=== PATIENT | male | born 1995 | race Caucasian/White ===

== ENCOUNTER 2021-05-08 10:25 | Emergency (ER) | payer OTHER, SELFPAY ==
[2021-05-08 10:34] VITALS: BP 153/82; PULSE 84; RESP 19; O2SAT 100; BMI 30.8
--- NOTE | 2021-05-08 10:41 | CT_ITS ---
WS: [id number] CT THORACIC SPINE HISTORY: fall 12 ft TECHNIQUE: Contiguous 2.5 mm axial images are reviewed to thoracic spine. Images are reformatted in s agittal and coronal planes. All CT scans at [facility] use at least one of these dose optimiz ation techniques: automated exposure control; mA and/or kV adjustment per patient size (includes targ eted exams where dose is matched to clinical indication); or iterative reconstruction. DLP: 2337.35 mGy.cm COMPARISON: None available. Normal posterior thoracic alignment. Disc spaces are maintained. Minimal compression deformity involving the superior endplate of T4 without retropulsion. Less than 5 % loss of height. There is a small amount of bleeding around the vertebral body. There is an additional mildly complex compression fracture involving the superior endplate of T6 frac ture which extends into the LEFT lateral vertebral body. Complex fracture lines extend transversely a nd vertically. There is concave deformity with the fracture resulting in buckling anteriorly. No retr opulsion. Small amount of paravertebral hematoma adjacent to the T6 vertebral body. No additional fractures are identified. No adjacent pulmonary contusion or pneumothorax. CT/CT thoracic spin wo con* [id number] IMPRESSION: 1. Minimal anterior compression fracture involving T6 of approximately 10%. No retropulsion but there is buckling of the anterior LEFT lateral T6 vertebral b julieta. 2. Minimal anterior wedging, less than 5%, involving the superior endplate of T4 consistent with an acute fracture.
--- NOTE | 2021-05-08 10:41 | CT_ITS ---
WS: [id number] CT CERVICAL SPINE HISTORY: fall TECHNIQUE: Contiguous 2.5 mm axial imaging performed through the entire cervical spine. Sagittal and coronal reformats also performed. All CT scans at [facility] use at least one of these dose o ptimization techniques: automated exposure control; mA and/or kV adjustment per patient size (include s targeted exams where dose is matched to clinical indication); or iterative reconstruction. DLP: 890.31 mGy.cm COMPARISON: None available. Mild straightening of the normal cervical lordosis. Posterior cervical alignment is normal. Craniocer vical junction is normal. Lateral masses are aligned and the odontoid is intact. Predental space is n ormal. Facet joints are normally aligned. No acute cervical spine fractures are identified. Small jad tral disc protrusion at C3-4. Lung apices are clear. Benign cervical area lymph nodes. No compromise of the airway. No pneumothorax at the apices. Soft tissues are normal. Lung apices are clear. CT/CT cervical spin wo con* [id number] IMPRESSION: No acute cervical spine fracture.
--- NOTE | 2021-05-08 10:41 | CT_ITS ---
WS: [id number] CT CHEST, ABDOMEN AND PELVIS WITH CONTRAST. HISTORY: fall 12 ft, landed on back TECHNIQUE: Contiguous 5 mm axial imaging performed through the chest, abdomen and pelvis with IV cont rast, oral contrast has not been provided. Coronal and sagittal reformats chest. Coronal and sagittal reformats through the abdomen and pelvis. All CT scans at [facility] use at least one of the se dose optimization techniques: automated exposure control; mA and/or kV adjustment per patient size (includes targeted exams where dose is matched to clinical indication); or iterative reconstruction. CONTRAST: Visipaque 320; 95 mL IV. DLP: 1571.35 mGy.cm COMPARISON: None available. Chest CT: There is very minimal interstitial thickening of the posterior superior RIGHT upper and RIG HT lower lobes. This is very close to the site of the T6 compression fracture. May be very minimal ar eas of pulmonary contusion or atelectasis. No laceration. No pneumonia. 3 mm nodule RIGHT lower lobe. No pneumothorax. Normal size thoracic aorta. No evidence for aortic injury. No hematoma. Normal size pulmonary artery. Heart is normal. No pericardial or pleural effusions. Small triangular soft tissue mass in the anter ior mediastinum is most consistent with normal residual thymic tissue. No rib fractures are identified. Again noted are the minimal compression deformities involving T4 and T6 which were described on the thoracic spine CT. Abdomen CT: Liver, spleen, pancreas, gallbladder, adrenals and kidneys are negative for acute injury. No free air or mesenteric hematoma. Visualized GI tract is normal. There is significant fecal retent ion in the RIGHT colon. Pelvic CT: Minimally well distended urinary bladder. There is no free fluid or blood in the pelvis. N o adenopathy. No pelvic fractures. CT/CT chest abd pel w con* IMPRESSION: 1. Very minimal soft tissue thickening in the posterior superior lower lobes b ilaterally. This is near the site of the T6 compression fracture. Could represe nt very minimal pulmonary contusion. Alternatively could be a small amount of a telectasis from dependent positioning. 2. No pneumothorax. 3. Thoracic and abdominal aortas are normal. 4. No mediastinal hematoma. 5. No abdominal or pelvic acute abnormalities.
--- NOTE | 2021-05-08 10:43 | ED_ITS ---
Documented by User: ARAM Villa 05/08/21 13:06 HPI - Fall General: Chief Complaint: Fall Stated Complaint: FALL FROM TREE STAND 12 FEET HIGH Time Seen by Provider: 05/08/21 10:34 Source: patient and family Mode of arrival: ambulatory Limitations: no limitations History of Present Illness: HPI Narrative: Patient is a 25-year-old male who presents to ED today along with his mother for complaints of a fall from a tree stand at approximately 12 feet. He states he landed directly onto his back. He is complaining of mid back pain and bilateral rib pain. Patient denies striking his head or LOC. He does not complain of lower back, hip, or lower extremity pain. He has been ambulatory since the fall without difficulty. He complains of pain with deep inhalation MD complaint: fall Onset (ago): minute(s) Fall from: from height (distance) (12 ft) Fall witnessed: no Place fall occurred: other (outdoors; tree stand) Loss of consciousness: None Symptoms prior to fall: none Context: tripped/slipped Location of injury: chest and back Associated symptoms-after fall: Reports chest pain and headache(s); Denies abdominal pain, difficulty walking, lightheadedness or neck pain Review of Systems Eyes: Denies: change in vision ENMT: Denies: odynophagia, ear or mastoid pain, ear discharge, nasal discharge or epistaxis Card: Reports: chest pain; Denies: palpitations, irregular heart rhythm, edema, swelling of feet/ankles, lightheadedness, syncope or pre-syncope Resp: Denies: dyspnea, wheezing or hemoptysis GI: Denies: abdominal pain, vomiting or hematemesis Musc: Reports: back pain; Denies: neck pain, extremity pain or joint pain Neuro: Reports: headache(s); Denies: numbness in extremities, weakness in extremities, sensory changes, lack of coordination, difficulty walking or dizziness Physical Exam Const: COMMON NORMALS: average body habitus, patient oriented x3, no limitations, healthy appearing, alert and well nourished GENERAL APPEARANCE: in distress (appears uncomfortable secondary to pain) ORIENTATION/CONSCIOUSNESS: Yes awake, Yes oriented to person, Yes oriented to place and Yes oriented to time HENMT: COMMON NORMALS: normocephalic and atraumatic HEAD & SCALP: n ormocephalic and atraumatic Neck/C-Spine: COMMON NORMALS: full ROM CERVICAL SPINE: Yes cervical ROM normal, No pain with cervical ROM, No Cervical spine tenderness, No step off deformity and No Paracervical muscle tenderness Chest: COMMONS NORMALS: normal inspection of the chest CHEST: Yes Sym metrical chest wall rise OTHER: TTP bilateral posteriolateral ribs; no crepitus or bony deformites noted Resp: COMMON NORMALS: normal respiratory effort and clear to auscultation bilaterally AUSCULTATION: clear to auscultation bilaterally Cardio: COMMON NORMALS: regular rate and regular rhythm RATE: regular rate RHYTHM: regular rhythm GI: COMMON NORMALS: Normal to inspection, nondistended, normoactive bowel sounds present, Soft to palpation, non-tender, No hepatosplenomegaly present and no masses PALPATION: Yes Soft to palpation and Yes No hepatosplenomegaly present Back/Pelvis: COMMON NORMALS: straight leg raise negative bilaterally THORACIC SPINE/UPPER BACK: Yes ROM limited (secondary to pain) and Yes thoracic spinal tenderness (mid to lower T spine) LUMBAR SPINE/LOWER BACK: Yes normal to inspection, Yes lumbar ROM normal, No lumbar spinal tenderness and No paraspinal muscle tenderness PELVIS: Yes buttocks normal SACROILIAC JOINTS: Yes SI joints normal Extremity: COMMON NORMALS: normal to inspection and full ROM GENERAL: Yes normal exam except as noted Neuro: ANNAMARIA COMA SCALE: document GCS findings [place] coma scale eye opening: Spontaneous Annamaria coma scale verbal response: Orientated Annamaria coma scale motor response: Obey commands Annamaria coma scale total score: 15 COMMON NORMALS: patient oriented x3, moves all extremities, no focal motor deficits, no sensory deficits noted and gait normal SENSORIUM/ORIENTATION: Yes alert, Yes oriented to person, Yes oriented to place and Yes oriented to time Skin: COMMON NORMALS: no rashes or lesions noted GENERAL SKIN EXAM: no rashes or lesions noted TRAUMA: no lacerations or abrasions Course Vital Signs: Vital signs: Vital Signs Temperature 98.9 F 05/08/21 12:35 Pulse Rate 66 05/08/21 12:35 Respiratory Rate 19 H 05/08/21 12:35 Blood Pressure 121/76 05/08/21 12:35 Pulse Oximetry 98 05/08/21 12:35 MDM - Fall MDM Narrative: Medical decision making narrative: Imaging obtained of CT cervical, thoracic, lumbar, chest/abdomen/pelvis showing a T6 fracture with possible associated minor pulmonary contusions. Patient's respirations are even and nonlabored. Sats are normal. Spoke with Dr. Ocampo who agreed with plan for discharge, TLSO brace, and follow-up with Dr. Ann. Strict return to ED precautions given regarding worsening or uncontrollable pain, shortness of breath, difficulty breathing, chest pain, abdominal pain, or any other concerns he may have. Lab Data: Labs: Lab Results 05/08/21 05/08/21 11:00 11:00 WBC 11.9 10^3/uL H 10 ^3/uL (4.0-10.0) RBC 5.13 10^6/uL 10^6 /uL (4.1-5.3) Hgb 15.6 g/dL g/dL (11.7-16.6) Hct 44.7 % % (42.0-52.0) MCV 87.1 fl fl (80-94) MCH 30.4 pg pg (28.0-34.0) MCHC 34.9 g/dL g/dL (30.0-36.0) RDW 12.4 % % (12.1-15.1) Plt Count 177 10^3/cmm 10^3 /cmm (130-400) MPV 10.7 fL H fL (7.4-10.4) Neut % (Auto) 66.4 % % Lymph % (Auto) 24.3 % % [place] % (Auto) 7.7 % % Eos % (Auto) 0.9 % % Baso % (Auto) 0.4 % % Neut # (Auto) 7.89 10^3/uL H 10 ^3/uL (1.8-7.7) Lymph # (Auto) 2.9 10^3/uL 10^3/ uL (0.8-4.8) [place] # (Auto) 0.9 10^3/uL 10^3/ uL (0.2-0.9) Eos # (Auto) 0.1 10^3/uL 10^3/ uL (0.0-0.8) Baso # (Auto) 0.1 10^3/uL 10^3/ uL (0.0-0.1) Nucleated RBC % (a uto) 0 % % Nucleated RBCs # 0.0 /100WBC /100W BC Sodium 140 mmol/L mmol/L (136-145) Potassium 3.9 mmol/L mmol/L (3.5-5.1) Chloride 103 mmol/L mmol/L (98-107) Carbon Dioxide 27 mmol/L mmol/L (22-29) Anion Gap 13.9 (5-19) BUN 7 mg/dL mg/dL (6-20) Creatinine 0.9 mg/dL mg/dL (0.7-1.2) GFR Calculation 103.7 mL/min mL/m in (90-130) Glucose 83 mg/dL mg/dL (65-115) Calculated Osmolal ity 287 mOsm/kg mOsm/ kg (285-295) Calcium 9.0 mg/dL mg/dL (8.5-10.5) Total Bilirubin 1.2 mg/dL mg/dL (0.15-1.2) AST 7 U/L U/L (0-40) ALT 18 U/L U/L (0-41) Alkaline Phosphata se 54 IU/L IU/L (40-130) Total Protein 7.4 g/dL g/dL (6.6-8.7) Albumin 4.3 g/dL g/dL (3.5-5.2) Globulin 3.1 g/dL g/dL (1.3-4.6) Imaging Data^: CT cervical: Radiologist's impression: [address] [id number] Scan ReportSigned Patient: Paolo Kay #: [id number]: 1995Acct#:[id number]/Sex: 25 / MADM Date: 05/08/21Loc: ERRoom/Bed:Attending Dr: Ordering Provider/Ordering MD: Peri Sterling Date of Service: 05/08/21 Procedure(s): CT cervical spin wo con* [id number] Accession Number(s): [id number] Report Number: [id number] WS: [id number] CT CERVICAL SPINE HISTORY: fall TECHNIQUE: Contiguous 2.5 mm axial imaging performed through the entire cervical spine. Sagittal and coronal reformats also performed. All CT scans at [facility] use at least one of these dose optimization techniques: automated exposure control; mA and/or kV adjustment per patient size (includes targeted exams where dose is matched to clinical indication); or iterative reconstruction. DLP: 890.31 mGy.cm COMPARISON: None available. Mild straightening of the normal cervical lordosis. Posterior cervical alignment is normal. Craniocervical junction is normal. Lateral masses are aligned and the odontoid is intact. Predental space is normal. Facet joints are normally align ed. No acute cervical spine fractures are identified. Small central disc protrusion at C3-4. Lung apices are clear. Benign cervical area lymph nodes. No compromise of the airway. No pneumothorax at the apices. Soft tissues are normal. Lung apices are clear. CT/CT cervical spin wo con* [id number] IMPRESSION: No acute cervical spine fracture. Dictated By:Mary Hercules DOSigned By:Mary Hercules DOSigned Date/Time:05/08/21 1111DD/ 1105 CXR: Radiologist's impression: [facility] [place] [id number] ReportSigned Patient: Paolo Kay #: [id number]: 1995Acct#:[id number]/Sex: 25 / MADM Date: 05/08/21Loc: ERRoom/Bed:Attending Dr: Ordering Provider/Ordering MD: Peri Sterling Date of Service: 05/08/21 Procedure(s): XR chest 1V portable [id number] Accession Number(s): [id number] Report Number: [id number] PROCEDURE INFORMATION: Exam: XR Chest Exam date and time: 05/08/2021 10:41 AM Age: 25 years old Clinical indication: Injury or trauma; Fall; Blunt trauma (contusions or hematomas); Additional info: Fall 12 ft TECHNIQUE: Imaging protocol: XR of the chest. Views: 1 view. Other technique: Frontal portable upright view of the chest. COMPARISON: No relevant prior studies available. FINDINGS: Lungs: The lungs are clear bilaterally. The pulmonary vasculature is normal. Pleural spaces: No pleural effusion. No pneumothorax. Heart/Mediastinum: The heart is normal in size and contour. Bones/joints: No acute chest wall abnormality identified. XR/XR chest 1V portable [id number] IMPRESSION: 1. No acute cardiopulmonary abnormality identified. 2. No acute injury identified. Radiation Dose CTDIVOL = (mGy): DLP = (mGy-cm) Dictated By:Arnaud Winston MDSigned By:Arnaud Winston MDSigned Date/Time:05/08/21 1128DD/ 1041 CT thoracic : Radiologist's impression: [facility] [address] [place] [address] CT Scan Report Signed Patient: Paolo Kay Unit #: [id number] : 1995 Age/Sex: 25 / M ADM Date: 05/08/21 Loc: ER Room/Bed: Attending Dr: Ordering Provider/Ordering MD: Peri Sterling Date of Service: 05/08/21 Procedure(s): CT thoracic spin wo con* [id number] Accession Number(s): [id number] Report Number: [id number] WS: [id number] CT THORACIC SPINE HISTORY: fall 12 ft TECHNIQUE: Contiguous 2.5 mm axial images are reviewed to thoracic spine. Images are reformatted in sagittal and coronal planes. All CT scans at [facility] use at least one of these dose optimization techniques: automated exposure control; mA and/or kV adjustment per patient size (includes targeted exams where dose is matched to clinical indication); or iterative reconstruction. DLP: 2337.35 mGy.cm COMPARISON: None available. Normal posterior thoracic alignment. Disc spaces are maintained. Minimal compression deformity involving the superior endplate of T4 without retropulsion. Less than 5% loss of height. There is a small amount of bleeding around the vertebral body. There is an additional mildly complex compression fracture involving the superior endplate of T6 fracture which extends into the LEFT lateral vertebral body. Complex fracture lines extend transversely and vertically. There is concave deformity with the fracture resulting in buckling anteriorly. No retropulsion. Small amount of paravertebral hematoma adjacent to the T6 vertebral body. No additional fractures are identified. No adjacent pulmonary contusion or pneumothorax. CT/CT thoracic spin wo con* [id number] IMPRESSION: 1. Minimal anterior compression fracture involving T6 of approximately 10%. No retropulsion but there is buckling of the anterior LEFT lateral T6 vertebral body. 2. Minimal anterior wedging, less than 5%, involving the superior endplate of T4 consistent with an acute fracture. Dictated By: Mary Hercules DO Signed By: Mary Hercules DO Signed Date/Time: 05/08/21 1120 DD/ 1111 CT lumbar: Radiologist's impression: [facility] [place] [id number] CT Scan Report Signed Patient: Paolo Kay Unit #: [id number] : 1995 Age/Sex: 25 / M ADM Date: 05/08/21 Loc: ER Room/Bed: Attending Dr: Ordering Provider/Ordering MD: Peri Sterling Date of Service: 05/08/21 Procedure(s): CT lumbar spine wo con* [id number] Accession Number(s): [id number] Report Number: [id number] WS: [id number] CT LUMBAR SPINE, noncontrast. HISTORY: fall 12 ft TECHNIQUE: Contiguous 2.5 mm axial imaging are performed. Sagittal and coronal reformats are submitted and reviewed. All CT scans at [facility] use at least one of these dose optimization techniques: automated exposure control; mA and/or kV adjustment per patient size (includes targeted exams where dose is matched to clinical indication); or iterative reconstruction. IV contrast: None DLP: 2232.14 mGy.cm COMPARISON: None available. Normal lumbar alignment with no loss of disc space height or vertebral body height. L1-2: Normal. L2-3: Normal. L3-4: Normal. L4-5: Normal. L5-S1: Normal. Visualized retroperitoneum is normal. CT/CT lumbar spine wo con* [id number] IMPRESSION: NORMAL CT LUMBAR SPINE. Dictated By: Mary Hercules DO Signed By: Mary Hercules DO Signed Date/Time: 05/08/21 1122 DD/ 1120 CT chest/abdomen/pelvis: Radiologist's impression: [facility] [address] [place] [address] CT Scan Report Signed Patient: Paolo Kay Unit #: [id number] : 1995 Age/Sex: 25 / M ADM Date: 05/08/21 Loc: ER Room/Bed: Attending Dr: Ordering Provider/Ordering MD: Peri Sterling Date of Service: 05/08/21 Procedure(s): CT chest abd pel w con* Accession Number(s): [id number] Report Number: [id number] WS: [id number] CT CHEST, ABDOMEN AND PELVIS WITH CONTRAST. HISTORY: fall 12 ft, landed on back TECHNIQUE: Contiguous 5 mm axial imaging performed through the chest, abdomen and pelvis with IV contrast, oral contrast has not been provided. Coronal and sagittal reformats chest. Coronal and sagittal reformats through the abdomen and pelvis. All CT scans at [facility] use at least one of these dose optimization techniques: automated exposure control; mA and/or kV adjustment per patient size (includes targeted exams where dose is matched to clinical indication); or iterative reconstruction. CONTRAST: Visipaque 320; 95 mL IV. DLP: 1571.35 mGy.cm COMPARISON: None available. Chest CT: There is very minimal interstitial thickening of the posterior superior RIGHT upper and RIGHT lower lobes. This is very close to the site of the T6 compression fracture. May be very minimal areas of pulmonary contusion or atelectasis. No laceration. No pneumonia. 3 mm nodule RIGHT lower lobe. No pneumothorax. Normal size thoracic aorta. No evidence for aortic injury. No hematoma. Normal size pulmonary artery. Heart is normal. No pericardial or pleural effusions. Small triangular soft tissue mass in the anterior mediastinum is most consistent with normal residual thymic tissue. No rib fractures are identified. Again noted are the minimal compression deformities involving T4 and T6 which were described on the thoracic spine CT. Abdomen CT: Liver, spleen, pancreas, gallbladder, adrenals and kidneys are negative for acute injury. No free air or mesenteric hematoma. Visualized GI tract is normal. There is significant fecal retention in the RIGHT colon. Pelvic CT: Minimally well distended urinary bladder. There is no free fluid or blood in the pelvis. No adenopathy. No pelvic fractures. CT/CT chest abd pel w con* IMPRESSION: 1. Very minimal soft tissue thickening in the posterior superior lower lobes bilaterally. This is near the site of the T6 compression fracture. Could represent very minimal pulmonary contusion. Alternatively could be a small amount of atelectasis from dependent positioning. 2. No pneumothorax. 3. Thoracic and abdominal aortas are normal. 4. No mediastinal hematoma. 5. No abdominal or pelvic acute abnormalities. Dictated By: Mary Hercules DO Signed By: Mary Hercules DO Signed Date/Time: 05/08/21 1142 DD/ 1122 Discharge Plan Discharge Patient Disposition: Home Clinical Impression: Injury resulting from fall from height Compression fracture of T6 vertebra Qualifiers: Encounter type: initial encounter Qualified Code(s): S22.050A - Wedge compression fracture of T5-T6 vertebra, initial encounter for closed fracture Condition: Stable Prescriptions: New hydrocodone-acetaminophen 5-325 mg tablet 1 tab PO Q6H PRN (Reason: pain) Qty: 20 RF: 0 Discharge Orders: Discharge ED (Routine); Ordered 05/08/21 Ordered By: Peri Sterling Patient Instructions: Vertebral Compression Fracture (ED), Opioid Safety Activity Restrictions/Additional Instructions: [facility] is committed to fighting the nationwide opiate epidemic. We are providing ALL patients with information regarding opiate safety. If you received opiate pain medication during your stay or if you received a prescription for opiate pain medication-please review this handout. If not, you may disregard. Thank you. As we discussed you need to wear your TLSO brace at all times apart from bathing/showering. Case management will contact you shortly to set you up with your follow-up orthopedic/spine consult. You need to return to the emergency department for worsening or uncontrollable pain, trouble breathing, shortness of breath, severe chest or abdomen pain, or any other concerns you may have. I hope you begin to feel better soon. Stand Alone Forms: Work/School Release Coding Level of Care Code ED Eyeletter for Chg Fwd Exam Comprehensive Documented by User: Navid Ocampo DO 05/11/21 06:59 HPI - Fall General: Chief Complaint: Fall Stated Complaint: FALL FROM TREE STAND 12 FEET HIGH Time Seen by Provider: 05/08/21 10:34 Course Vital Signs: Vital signs: Vital Signs Temperature 98.9 F 05/08/21 12:35 Pulse Rate 66 05/08/21 12:35 Respiratory Rate 19 H 05/08/21 12:35 Blood Pressure 121/76 05/08/21 12:35 Pulse Oximetry 98 05/08/21 12:35 MDM - Fall MDM Narrative: Medical decision making narrative: Chart reviewed and patient discussed with midlevel. Agree with assessment and plan. Reviewed images and reports discussed discharge plan. Lab Data: Labs: Lab Results 05/08/21 05/08/21 11:00 11:00 WBC 11.9 10^3/uL H 10 ^3/uL (4.0-10.0) RBC 5.13 10^6/uL 10^6 /uL (4.1-5.3) Hgb 15.6 g/dL g/dL (11.7-16.6) Hct 44.7 % % (42.0-52.0) MCV 87.1 fl fl (80-94) MCH 30.4 pg pg (28.0-34.0) MCHC 34.9 g/dL g/dL (30.0-36.0) RDW 12.4 % % (12.1-15.1) Plt Count 177 10^3/cmm 10^3 /cmm (130-400) MPV 10.7 fL H fL (7.4-10.4) Neut % (Auto) 66.4 % % Lymph % (Auto) 24.3 % % [place] % (Auto) 7.7 % % Eos % (Auto) 0.9 % % Baso % (Auto) 0.4 % % Neut # (Auto) 7.89 10^3/uL H 10 ^3/uL (1.8-7.7) Lymph # (Auto) 2.9 10^3/uL 10^3/ uL (0.8-4.8) [place] # (Auto) 0.9 10^3/uL 10^3/ uL (0.2-0.9) Eos # (Auto) 0.1 10^3/uL 10^3/ uL (0.0-0.8) Baso # (Auto) 0.1 10^3/uL 10^3/ uL (0.0-0.1) Nucleated RBC % (a uto) 0 % % Nucleated RBCs # 0.0 /100WBC /100W BC Sodium 140 mmol/L mmol/L (136-145) Potassium 3.9 mmol/L mmol/L (3.5-5.1) Chloride 103 mmol/L mmol/L (98-107) Carbon Dioxide 27 mmol/L mmol/L (22-29) Anion Gap 13.9 (5-19) BUN 7 mg/dL mg/dL (6-20) Creatinine 0.9 mg/dL mg/dL (0.7-1.2) GFR Calculation 103.7 mL/min mL/m in (90-130) Glucose 83 mg/dL mg/dL (65-115) Calculated Osmolal ity 287 mOsm/kg mOsm/ kg (285-295) Calcium 9.0 mg/dL mg/dL (8.5-10.5) Total Bilirubin 1.2 mg/dL mg/dL (0.15-1.2) AST 7 U/L U/L (0-40) ALT 18 U/L U/L (0-41) Alkaline Phosphata se 54 IU/L IU/L (40-130) Total Protein 7.4 g/dL g/dL (6.6-8.7) Albumin 4.3 g/dL g/dL (3.5-5.2) Globulin 3.1 g/dL g/dL (1.3-4.6) Discharge Plan Discharge Patient Disposition: Home Clinical Impression: Injury resulting from fall from height Compression fracture of T6 vertebra Qualifiers: Encounter type: initial encounter Qualified Code(s): S22.050A - Wedge compression fracture of T5-T6 vertebra, initial encounter for closed fracture Condition: Stable Prescriptions: New hydrocodone-acetaminophen 5-325 mg tablet 1 tab PO Q6H PRN (Reason: pain) Qty: 20 RF: 0 Discharge Orders: Discharge ED (Routine); Ordered 05/08/21 Ordered By: Peri Sterling Patient Instructions: Vertebral Compression Fracture (ED), Opioid Safety Activity Restrictions/Additional Instructions: [facility] is committed to fighting the nationwide opiate epidemic. We are providing ALL patients with information regarding opiate safety. If you received opiate pain medication during your stay or if you received a prescription for opiate pain medication-please review this handout. If not, you may disregard. Thank you. As we discussed you need to wear your TLSO brace at all times apart from bathing/showering. Case management will contact you shortly to set you up with your follow-up orthopedic/spine consult. You need to return to the emergency department for worsening or uncontrollable pain, trouble breathing, shortness of breath, severe chest or abdomen pain, or any other concerns you may have. I hope you begin to feel better soon. Stand Alone Forms: Work/School Release Coding Level of Care Code ED Eyeletter for Staci Fwd Exam Comprehensive
--- NOTE | 2021-05-08 10:55 | CT_ITS ---
WS: [id number] CT LUMBAR SPINE, noncontrast. HISTORY: fall 12 ft TECHNIQUE: Contiguous 2.5 mm axial imaging are performed. Sagittal and coronal reformats are submitte d and reviewed. All CT scans at [facility] use at least one of these dose optimization techni ques: automated exposure control; mA and/or kV adjustment per patient size (includes targeted exams w here dose is matched to clinical indication); or iterative reconstruction. IV contrast: None DLP: 2232.14 mGy.cm COMPARISON: None available. Normal lumbar alignment with no loss of disc space height or vertebral body height. L1-2: Normal. L2-3: Normal. L3-4: Normal. L4-5: Normal. L5-S1: Normal. Visualized retroperitoneum is normal. CT/CT lumbar spine wo con* [id number] IMPRESSION: NORMAL CT LUMBAR SPINE.
[2021-05-08] MEDS: iodixanol 320 mg/mL 100mL Btl IV (11:10)
[2021-05-08 11:22] VITALS: BP 121/76; PULSE 75; RESP 18; TEMP 37.3; O2SAT 96
[2021-05-08] MEDS: ondansetron 2 mg/ML SDV 2 mL 4 MG IVP (11:26)
[2021-05-08 11:29] VITALS: RESP 18; O2SAT 96
[2021-05-08] MEDS: morphine 4 mg/mL SDV 1 mL IVP (11:29)
[2021-05-08 11:45] LABS: Basophils # 0.1 10^3/uL (0.0-0.1); Basophils % 0.4 %; Eosinophils # 0.1 10^3/uL (0.0-0.8); Eosinophils % 0.9 %; Hematocrit 44.7 % (42.0-52.0); Hemoglobin 15.6 g/dL (11.7-16.6); Lymphocytes # 2.9 10^3/uL (0.8-4.8); Lymphocytes % 24.3 %; Mean Corpuscular HGB Conc 34.9 g/dL (30.0-36.0); Mean Corpuscular Hemoglobin 30.4 pg (28.0-34.0); Mean Corpuscular Volume 87.1 fl (80-94); Mean Platelet Volume 10.7 fL (7.4-10.4); Monocytes # 0.9 10^3/uL (0.2-0.9); Monocytes % 7.7 %; Neutrophils # 7.89 10^3/uL (1.8-7.7); Neutrophils % 66.4 %; Nucleated Red Blood Cells % 0 %; Platelet Count 177 10^3/cmm (130-400); Red Blood Count 5.13 10^6/uL (4.1-5.3); Red Cell Distribution Width 12.4 % (12.1-15.1); White Blood Count 11.9 10^3/uL (4.0-10.0)
[2021-05-08 11:58] VITALS: BP 121/76; PULSE 62; RESP 18; O2SAT 95
--- NOTE | 2021-05-08 12:17 | DCPLANNER ---
manager inspection was asked to schedule a follow up appointment for patient with ortho. manager inspection called the ortho clinic, spoke with Katelynn, gave clinic patients information. manager inspection was told that patients information would be printed and reviewed. Clinic will call patient with appointment information.
[2021-05-08 12:19] LABS: Alanine Aminotransferase 18 U/L (0-41); Albumin Level 4.3 g/dL (3.5-5.2); Alkaline Phosphatase 54 IU/L (40-130); Anion Gap 13.9 (5-19); Aspartate Amino Transferase 7 U/L (0-40); Blood Urea Nitrogen 7 mg/dL (6-20); Carbon Dioxide 27 mmol/L (22-29); Chloride 103 mmol/L (98-107); Globulin 3.1 g/dL (1.3-4.6); Glomerular Filtration Rate 103.7 mL/min (90-130); Glucose 83 mg/dL (65-115); Osmolality Calculated 287 mOsm/kg (285-295); Potassium 3.9 mmol/L (3.5-5.1); Sodium 140 mmol/L (136-145); Total Bilirubin 1.2 mg/dL (0.15-1.2); Total Protein 7.4 g/dL (6.6-8.7)
[2021-05-08 12:28] VITALS: BP 121/76; PULSE 72; RESP 19; TEMP 37.2; O2SAT 98
[2021-05-08 12:35] VITALS: BP 121/76; PULSE 66; RESP 19; TEMP 37.2; O2SAT 98
--- NOTE | 2021-05-28 06:59 | DCPLANNER ---
Patient had a follow up appointment scheduled for 05.22.[address] Ann at [facility] - patient did attend appointment.
== END 2021-05-08 12:37 | disposition home or self-care (01) ==
PROVIDERS: Emergency Provider Physician Assistant
DX: S22.050A Wedge compression fracture of T5-T6 vertebra, initial encounter for closed fracture (principal); W14.XXXA Fall from tree, initial encounter
CPT/HCPCS: 71045; 71260; 72125; 72128; 72131; 74177; 80053; 85025; 96374; 96375; 97760; 99284; J2270; J2405; L0456; Q9967

== ENCOUNTER → 2021-05-22 08:43 | Outpatient (BNVA) | payer OTHER, SELFPAY | PROVIDERS: Visit Provider Orthopaedic Surgery | DX: S22.059A Unspecified fracture of T5-T6 vertebra, initial encounter for closed fracture (principal); W14.XXXA Fall from tree, initial encounter | CPT/HCPCS: 72070 ==

== ENCOUNTER → 2021-06-26 08:19 | Outpatient (BNVA) | payer OTHER, SELFPAY | PROVIDERS: Visit Provider Orthopaedic Surgery | DX: S22.059A Unspecified fracture of T5-T6 vertebra, initial encounter for closed fracture (principal); X58.XXXA Exposure to other specified factors, initial encounter | CPT/HCPCS: 72070 ==

== ENCOUNTER → 2021-07-26 08:12 | Outpatient (BNVA) | payer OTHER, SELFPAY | PROVIDERS: Visit Provider Physician Assistant | DX: S22.059D Unspecified fracture of T5-T6 vertebra, subsequent encounter for fracture with routine healing (principal); X58.XXXD Exposure to other specified factors, subsequent encounter | CPT/HCPCS: 72070 ==